=== PATIENT | male | born 1975 | race Caucasian/White ===

== ENCOUNTER 2016-07-25 16:03 | Emergency (ER) | payer OTHER ==
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
[~2016-07-25 16:03] MED LIST: ATENOLOL PO; FLEXERIL10 M1 PO; LISINOPRIL PO; LORTAB 7.5-5001 TAB PO; METFORMIN PO; OXYCONTIN60 MG PO; PERCOCET5/325 PO; PHENERGAN25 MG PO; TRICOR PO; VALIUM10 MG PO; VICODIN 5/500 T1 TAB PO; VOLTAREN75 MG PO; ZITHROMAX PO; ZOCOR PO
[2016-07-25] MEDS ORDERED: KLONOPIN PO (16:17)
[2016-07-25] MEDS ORDERED: NEURONTIN800 MG PO (16:17)
== END 2016-07-25 17:45 | disposition home or self-care (01) ==
LOC: SED 16:03
DX: S62.304A Unspecified fracture of fourth metacarpal bone, right hand, initial encounter for closed fracture (principal); F17.210 Nicotine dependence, cigarettes, uncomplicated; E11.9 Type 2 diabetes mellitus without complications; X58.XXXA Exposure to other specified factors, initial encounter; Y92.009 Unspecified place in unspecified non-institutional (private) residence as the place of occurrence of the external cause
CPT/HCPCS: 29125; 73130; 99283

== ENCOUNTER 2016-08-31 22:04 | Emergency (ER) | payer OTHER ==
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
[~2016-08-31 22:04] MED LIST changes: +KLONOPIN PO; +NEURONTIN800 MG PO
== END 2016-09-01 00:52 | disposition home or self-care (01) ==
LOC: SED 22:04
DX: S52.502A Unspecified fracture of the lower end of left radius, initial encounter for closed fracture (principal); S52.612A Displaced fracture of left ulna styloid process, initial encounter for closed fracture; S02.40DA Maxillary fracture, left side, initial encounter for closed fracture; F17.210 Nicotine dependence, cigarettes, uncomplicated; E11.9 Type 2 diabetes mellitus without complications; I10 Essential (primary) hypertension; E78.5 Hyperlipidemia, unspecified; Z88.0 Allergy status to penicillin; Z79.899 Other long term (current) drug therapy; Z23 Encounter for immunization; W22.8XXA Striking against or struck by other objects, initial encounter
CPT/HCPCS: 29125; 70450; 70486; 73090; 73110; 73130; 90471; 90715; 99284

== ENCOUNTER → 2016-09-06 | Outpatient (CLI) | payer OTHER ==
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
== END | disposition home or self-care (01) ==
LOC: SCT 08:41
DX: S52.502D Unspecified fracture of the lower end of left radius, subsequent encounter for closed fracture with routine healing (principal); S52.612D Displaced fracture of left ulna styloid process, subsequent encounter for closed fracture with routine healing
CPT/HCPCS: 73200